=== PATIENT | female | born 1960 | race Two or more races ===

== ENCOUNTER 2018-09-09 16:10 | Emergency (ER) | payer SELFPAY ==
[~2018-09-09] VITALS: Ht 157.5 cm; Wt 61.3 kg
[2018-09-09 16:14] VITALS: BP 148/88
[2018-09-09 16:43] LABS: BASOPHILS # (AUTO) 0.02 x10^3/uL (0-0.1); BASOPHILS % (AUTO) 0 % (0-1); EOSINOPHILS # (AUTO) 0.13 x10^3/uL (0-0.4); EOSINOPHILS % (AUTO) 2 % (1-7); LYMPHOCYTES % (AUTO) 40 % (22-44); MD NO; MEAN CORPUSCULAR HEMOGLOBIN 29.5 pg (27.0-34.8); MEAN CORPUSCULAR HGB CONC 33.6 g/dL (32.4-35.8); MEAN CORPUSCULAR VOLUME 87.7 fL (80-100); MEAN PLATELET VOLUME 9.2 fL (7.4-10.4); MONOCYTES # (AUTO) 0.59 x10^3/uL (0.2-0.8); MONOCYTES % (AUTO) 9 % (2-9); NEUTROPHILS # (AUTO) 3.19 x10^3/uL (1.8-6.8); NEUTROPHILS % (AUTO) 49 % (42-75); PLATELET COUNT 265 x10^3/uL (130-400); RED BLOOD COUNT 4.64 x10^6/uL (3.82-5.3); RED CELL DISTRIBUTION WIDTH 13.4 % (9.6-15.2)
[2018-09-09 16:56] LABS: ALBUMIN 4.1 g/dL (3.4-5.0); ANION GAP 7 mmol/L (5-15); CALCIUM 8.8 mg/dL (8.5-10.1); CHLORIDE 105 mmol/L (98-107); CREATININE 0.87 mg/dL (0.55-1.02)
--- NOTE | 2018-09-09 19:07 | NUR ---
PT HERE FOR RIGHT LOWER LEG PAIN AND LEFT ELBOW PAIN. NO OBIVIOUS DEFORMITY. PT ABLE TO AMBULATED WELL.
--- NOTE | 2018-09-09 19:14 | NUR ---
Patient/Caregiver given discharge instructions and they have confirmed that they understand the instructions. Patient ambulatory with steady gait.
--- NOTE | 2018-09-09 19:21 | NUR ---
UA WALKED TO LAB
[2018-09-09 19:46] LABS: CULTURE INDICATED? YES; MICROSCOPIC INDICATED
== END 2018-09-09 19:33 | disposition home or self-care (01) ==
LOC: ED 19:17
DX: S80.12XA Contusion of left lower leg, initial encounter (principal); S80.11XA Contusion of right lower leg, initial encounter; S50.02XA Contusion of left elbow, initial encounter; E11.9 Type 2 diabetes mellitus without complications; W10.9XXA Fall (on) (from) unspecified stairs and steps, initial encounter; Y93.89 Activity, other specified; Y92.89 Other specified places as the place of occurrence of the external cause; Y99.8 Other external cause status
CPT/HCPCS: 36415; 71046; 80048; 81001; 82040; 85025; 87086; 93005; 99284